=== PATIENT | female | born 1970 | race Caucasian/White ===

== ENCOUNTER 2020-11-18 11:15 | Emergency (ER) | payer MEDICARE, OTHER | END 2020-11-18 14:30 | disposition home or self-care (01) | LOC: ER1 11:15 | DX: M25.561 Pain in right knee (principal); I10 Essential (primary) hypertension; F17.210 Nicotine dependence, cigarettes, uncomplicated; Z88.0 Allergy status to penicillin | CPT/HCPCS: 73564; 96372; 99283; J1885 ==

== ENCOUNTER → 2021-02-27 | Outpatient (CLI) | payer MEDICARE, OTHER | LOC: EXRD 13:44 | DX: M07.60 Enteropathic arthropathies, unspecified site (principal); M54.89 Other dorsalgia | CPT/HCPCS: 72070; 72100; 72202 ==